=== PATIENT | female | born 1955 | race Caucasian/White ===

== ENCOUNTER 2023-06-19 11:00 | Emergency (ER) | payer BC, MEDICARE ==
[2023-06-19 11:11] VITALS: BP 148/98; O2SAT 98
--- NOTE | 2023-06-19 11:47 | XRAY Report ---
PROCEDURE: Foot 3 View RT INDICATIONS: Trauma TECHNIQUE: 3 views of the foot were acquired. COMPARISON: None. FINDINGS: Bones: No acute fractures or dislocations. No suspicious bony lesions. Tiny plantar and calcaneal e nthesophytes. Soft tissues: Soft tissue density at the first MTP consistent with history of gout. IMPRESSION: No acute fracture. Soft tissue density at the medial aspect of the first MTP most consistent with his tory of gout. Reviewed by: Khalida Madrigal MD on 06/19/2023 11:46 AM PDT Approved by: Khalida Madrigal MD on 06/19/2023 11:46 AM PDT Station ID: [id number]
--- NOTE | 2023-06-19 11:59 | ED Physician Documentation ---
PD HPI LOWER EXT INJURY - Stated complaint Stated Complaint: RT FOOT PX - Chief complaint Chief Complaint: Ext Problem - History obtained from History obtained from: Patient - History of Present Illness PD HPI LOW EXT INJURY LOCATION: Right, Toe (base of great toe) Type of injury: Other (onset without injury of red/swelling at great toe.). No: Fall, Twist, Blunt / blow Timing - onset: How many days ago (2) Timing - duration: Days (2) Timing - details: Abrupt onset, Still present Worsened by: Moving, Palpating Associated symptoms: Swelling, Discolored (red and warm) Similar symptoms before: Diagnosis (gout) Recently seen: Not recently seen Review of Systems Skin: denies: Abrasion (s), Laceration (s) PD PAST MEDICAL HISTORY - Present Medications Home Medications: Ambulatory Orders Medication Instructions Recorded Confirmed Colchicine 0.6 mg PO BID #20 tablet 06/19/23 Oxycodone HCl/Acetaminophen 1 each PO Q6H PRN #14 tablet 06/19/23 [Percocet 5-325 mg Tablet] dexAMETHasone [Decadron] 4 mg PO DAILY #5 tablet 06/19/23 - Allergies Allergies/Adverse Reactions: Allergies Allergy/AdvReac Type Severity Reaction Status Date / Time No Known Drug Allergies Allergy Verified 06/19/23 11:09 PD ED PE NORMAL - Vitals Vital signs reviewed: Yes - General General: Alert and oriented X 3, No acute distress, Well developed/nourished - Extremities Extremities: Other (right great toe with redness, swelling, tender at MTP medial area. No skin lesions. ) - Neuro Neuro: No motor deficit, No sensory deficit Results - Vitals Vitals: Vital Signs - 24 hr 06/19/23 11:07 Temperature 36.6 C Heart Rate 106 H Respiratory 15 Rate Blood Pressure 148/98 H O2 Saturation 98 Oxygen O2 Source Room air - Rads (name of study) right foot Relevant Findings:: Prelim report reviewed, EMP independent interpretation of test (no fractures. calcific changes c/w prior gout.) PD Medical Decision Making - ED course Complexity details: considered differential (red/swelling base of great toe c/w gout. ), d/w patient Departure - Departure Disposition: 01 Home, Self Care Clinical Impression: Acute foot pain, Exacerbation of gout Condition: Stable Record reviewed to determine appropriate education?: Yes Instructions: ED Arthritis Gout Prescriptions: Colchicine 0.6 mg PO BID #20 tablet dexAMETHasone [Decadron] 4 mg PO DAILY #5 tablet Oxycodone HCl/Acetaminophen [Percocet 5-325 mg Tablet] 1 each PO Q6H PRN #14 tablet PRN Reason: pain Comments: This does look like gout exacerbation. Activity as tolerated. You can do topic al treatments with some cool towels or lidocaine. Mainly will prescribe you the colchicine twice daily to 3 times daily with food. Also Decadron steroid anti- inflammatory daily for the next several days. Add Tylenol 500 to 650 mg every 4-6 hours if needed for pain or oxycodone/acetaminophen if needed for worse pain. I sent your prescriptions to [facility] pharmacy in [place]. Recheck if not improving well over the next couple of days. I am prescribing a short course of narcotic pain medication for you. These are potentially dangerous and addictive medications that should be used carefully. These medications may constipate you. Take an [id number] stool softener such as docusate twice daily with plenty of water while taking these medications. If you go 24 hours without a bowel movement, take [id number] MiraLAX, per package instructions. Do not drink or drive while taking these medications. If you received narcotic or sedating medications while in the emergency depa rtment do not drive for 24 hours. Store this medication in a safe, secure place and out of reach of children. It is a violation of federal law to give or sell this medication to another person or to use in a manner other than prescribed. The ED will not refill narcotic prescriptions, including prescriptions lost or stolen. You can dispose of unwanted medications at the [facility]'s office or at several pharmacies such as [facility]. Forms: PCP List Discharge Date/Time: 06/19/23 12:43
[2023-06-19] MEDS ORDERED: dexAMETHasone 4 MG TABLET PO STA (12:27)
[2023-06-19] MEDS ORDERED: COLCHICINE 0.6 MG TABLET PO STA (12:27)
[2023-06-19] MEDS ORDERED: oxyCODONE 5 MG TABLET PO STA (12:27)
== END 2023-06-19 12:43 | disposition home or self-care (01) ==
LOC: ED 11:00
DX: M10.9 Gout, unspecified (principal)
CPT/HCPCS: 73630; 99283; 99284; A9270; J8540